=== PATIENT | female | born 1940 | race Caucasian/White ===

== ENCOUNTER 2020-08-28 12:39 | Outpatient (CLI) | payer MEDICARE, SELFPAY ==
--- NOTE | ~2020-08-28 | MR_ITS ---
EXAMINATION: MR knee RT wo con DATE: 08/28/2020 13:35 INDICATION: Right knee pain TECHNIQUE: Magnetic resonance imaging (MRI) of the right knee was performed without intravenous contr ast. Sequences included coronal PD-weighted FSE, coronal PD-weighted FS FSE, sagittal T2-weighted FS E, sagittal PD-weighted FS FSE and axial PD weighted fat saturated FSE. COMPARISON: Right knee radiographs dated 06/25/2020 FINDINGS: Medial compartment: Longitudinal horizontal tear of the medial meniscus which extends to the superior articular surface a t the posterior horn, crossing the free edge at the junction of the body and posterior horn extending to the inferior articular surface at the medial meniscal body. The increased signal at the body appe ars more diffuse and less well-defined suggesting secondary degenerative tearing at the meniscal body . Deep chondral ulceration involving a significant portion of the anterior and medial aspect of the m edial tibial plateau and anterior to central weightbearing medial femoral condyle with scattered smal l foci of subarticular edema. There is also subtle irregularity to the articular cortex along the ant erior to central weightbearing medial femoral condyle. A severe partial thickness cartilage loss with chondral surface regularity along the posterior weightbearing medial femoral condyle. Lateral compartment: Lateral meniscus is normal. Articular cartilage is normal. Patellofemoral compartment: Partial-thickness patellar cartilage loss with chondral surface regularity and deep fissuring without degenerative subchondral changes involving the apical ridge as well as both the medial and lateral f acets. Deep chondral ulceration without degenerative subchondral changes at the inferolateral aspect of the medial trochlea. Ligaments and tendons: Anterior and posterior cruciate ligaments are normal. The medial collateral ligament and fibular endy ateral ligament complex are normal. The extensor mechanism is normal. The visualized medial and later al hamstring tendons as well as the iliotibial band are normal. Fluid: Physiologic amount of fluid in the joint space. No loose osteochondral bodies identified. Osseous/other: Bone alignment is normal. No fracture or pathologic marrow replacing process. IMPRESSION: 1. Complex medial meniscal tear. 2. 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 Reviewed, dictated and finalized at location A. MIXER IMPRESSION: 1. Complex medial meniscal tear. 2. 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
== END 2020-08-28 12:40 | disposition home or self-care (01) ==
PROVIDERS: Visit Provider Orthopaedic Surgery
DX: S83.231A Complex tear of medial meniscus, current injury, right knee, initial encounter (principal); X58.XXXA Exposure to other specified factors, initial encounter; M17.11 Unilateral primary osteoarthritis, right knee
CPT/HCPCS: 73721

== ENCOUNTER 2021-05-04 13:16 | Outpatient (CLI) | payer MEDICARE, SELFPAY ==
--- NOTE | ~2021-05-04 | MR_ITS ---
EXAMINATION: MR lumbar spine wo con DATE: 05/04/2021 14:27 INDICATION: Lumbago. TECHNIQUE: Magnetic resonance imaging (MRI) of the lumbar spine was performed without intravenous con trast. Sequences included sagittal T2-weighted FSE, sagittal STIR FSE, sagittal T1-weighted FSE, and axial T2-weighted FSE. COMPARISON: None FINDINGS: There is 20 degrees levoscoliosis of lumbar spine. There is 3 mm retrolisthesis of L1 on L2 and L2 and L3 and 4 mm anterolisthesis of L4 on L5. There is interbody fusion at L5-S1. There is mil d chronic anterior wedging of T11 and T12 vertebral bodies. There is severely decreased disc height f rom T11-T12 through L2-L3, moderately decreased disc height at L3-L4, severely decreased disc height at L4-L5 with endplate remodeling. The distal spinal cord signal intensity is normal. The conus medul aldair is at L1-L2. There are cysts in the kidneys measuring up to 3.5 cm on the right. The following disc levels are specifically discussed: L1-L2: The disc is bulging and has an annular fissure. There is moderate and mild left facet joint os teoarthritis. There is mild bilateral neural foraminal stenosis. There is mild central canal stenosis . L2-L3: The disc is bulging and has an annular fissure. There is severe bilateral facet joint osteoart hritis. There is moderate bilateral neural foraminal stenosis. There is mild central canal stenosis. L3-L4: The disc is bulging. There is severe bilateral facet joint osteoarthritis. There is mild bilat eral neural foraminal stenosis. There is mild central canal stenosis. L4-L5: The disc is bulging. There is severe bilateral facet joint osteoarthritis. There is mild right and moderate left neural foraminal stenosis. There is mild central canal stenosis. L5-S1: There is severe bilateral facet joint osteoarthritis. There is mild bilateral neural foraminal stenosis. There is no central canal stenosis. IMPRESSION: 1. Severe lumbar spondylosis. 2. Lumbar levoscoliosis. Reviewed, dictated and finalized at location A.
== END 2021-05-04 13:17 ==
PROVIDERS: Visit Provider Nurse Practitioner Family
DX: M47.896 Other spondylosis, lumbar region (principal)
CPT/HCPCS: 72148